=== PATIENT | female | born 1990 | race Two or more races ===

== ENCOUNTER 2018-11-24 09:47 | Inpatient (IN) | payer OTHER ==
[~2018-11-24] VITALS: Ht 157.5 cm; Wt 67.1 kg
[2018-11-24] MEDS ORDERED: PRENATAL FORMU1 EAC1 PO (12:58)
== END 2018-11-26 19:08 | DRG 807 ==
LOC: OB/GYN 09:47 → LDR 10:22 → OB/GYN 23:23
PROVIDERS: ADMIT Obstetrics & Gynecology
PROC: 10E0XZZ Delivery of Products of Conception, External Approach (ICD-10-PCS; principal; 2018-11-24)
PROC: 0W8NXZZ Division of Female Perineum, External Approach (ICD-10-PCS; 2018-11-24)
PROC: 4A1HXCZ Monitoring of Products of Conception, Cardiac Rate, External Approach (ICD-10-PCS; 2018-11-24)
DX: O80 Encounter for full-term uncomplicated delivery (principal); Z37.0 Single live birth; Z3A.39 39 weeks gestation of pregnancy